=== PATIENT | female | born 1980 | race Caucasian/White ===

== ENCOUNTER 2016-09-14 16:13 | Emergency (ER) | payer MEDICAID, OTHER ==
[~2016-09-14] VITALS: Ht 160 cm; Wt 80.0 kg
[2016-09-14 16:20] VITALS: Ht 160 cm; Wt 80.0 kg
[2016-09-14] MEDS ORDERED: KETOROLAC 60 MG INJ IM STA (17:01)
[2016-09-14] MEDS ORDERED: ACETAMINOPHEN/CODEINE #3 TAB PO ONE (17:30)
--- NOTE | 2016-09-14 17:39 | RADRPT ---
PROCEDURE: XR Cervical Spine 3 Views. CLINICAL INDICATION: Neck pain TECHNIQUE: AP, lateral and odontoid views of the cervical spine were performed. The images were re viewed on a PACS workstation. COMPARISON: None. FINDINGS: Cervical spine demonstrates a normal lordosis. No fractures or destructive bony lesions are observe d. Intervertebral disk heights appear normal. Facet joints are unremarkable. No prevertebral soft tissue thickening is observed. IMPRESSION: Unremarkable cervical spine. If there is high clinical suspicion for traumatic injury, further evaluation with CT should be consi dered. If further characterization is needed CT or MRI could be helpful. RPTAT: AA .Jhon Roth MD, Date Time Electronically viewed and signed by .Jhon Roth MD, MD on 09/14/2016 17:39 .P/
[2016-09-14] MEDS ORDERED: ACET1TAB40 PO (18:00)
[2016-09-14] MEDS ORDERED: IBUP-1542 PO (18:00)
--- NOTE | 2016-09-14 18:09 | ERD ---
ER Documentation Chief Complaint Date/Time DATE: 09/14/16 TIME: 18:08 Chief Complaint LEFT EAR PAIN HPI This 36-year-old female presents with pain in her right side of her face. It started approximately week ago after turning her head suddenly. She has pain at the base of her neck or occipital area. She also has some pain in her right jaw with chewing and opening her mouth. She denies any fevers, vomiting, shortness breath or chest pain. ROS All systems reviewed and are negative except as per history of present illness. Medications Home Meds Active Scripts Acetaminophen with Codeine (Acetaminophen-Cod #3 Tablet) 1 Each Tablet, 1 TAB PO Q6H Y for PAIN, #15 TAB Prov:CHANNING CARDENAS MD 09/14/16 Ibuprofen* (Motrin*) 600 Mg Tab, 600 MG PO Q6, #20 TAB Prov:CHANNING CARDENAS MD 09/14/16 Allergies Allergies: Coded Allergies: No Known Allergy (Verified , 09/14/16) PMhx/Soc History of Surgery: No Anesthesia Reaction: No Hx Neurological Disorder: No Hx Respiratory Disorders: No Hx Cardiac Disorders: No Hx Psychiatric Problems: No Hx Miscellaneous Medical Probl: No Hx Alcohol Use: No Hx Substance Use: No Hx Tobacco Use: No Smoking Status: Never smoker Physical Exam Vitals Vital Signs Date Time Temp Pulse Resp B/P Pulse Ox O2 Delivery O2 Flow Rate FiO2 09/14/16 16:20 98.1 57 20 114/60 99 Physical Exam Const: [] Alert, not ill-appearing. Head: Atraumatic Eyes: Normal Conjunctiva ENT: Normal External Ears, Nose and Mouth. There is some tenderness in the right TMJ. There is no mastoid tenderness. TMs are normal oropharynx normal per Neck: Full range of motion..~ No meningismus. There is some tenderness at the base of the right cervical paraspinous muscles. C1-C2. Resp: Clear to auscultation bilaterally Cardio: Regular rate and rhythm, no murmurs Abd: Soft, non tender, non distended. Normal bowel sounds Skin: No petechiae or rashes Back: No midline or flank tenderness Ext: No cyanosis, or edema Neur: Awake and alert Psych: Normal Mood and Affect Results 24 hrs Current Medications Medications (Trade) Dose Ordered Sig/Kristi Route PRN Reason Start Time Stop Time Status Last Admin Dose Admin Ketorolac Tromethamine (Toradol) 60 mg ONCE STAT IM 09/14/16 17:01 09/14/16 17:03 DC 09/14/16 17:13 Acetaminophen/ Codeine Phosphate (Tylenol No.3) 1 tab ONCE ONCE PO 09/14/16 17:30 09/14/16 17:31 DC 09/14/16 17:12 Procedures/MDM X-ray C spine 3V Interpreted by me: Bones: [No fracture] Joints: [No dislocation] Foreign body: [None]. Impression have a normal C-spine x-ray Patient presents with signs of TMJ and neck pain after turning her head quickly. There is no signs of mastoiditis, abscess, neurologic deficit, fracture, dislocation. She will treated with ibuprofen and Tylenol No. 3 instructions for dental follow-up. She should return for fevers, difficulty swallowing, shortness breath, new worsening symptoms. The patient was stable with no new complaints during the ER course. Clinically, there is no current evidence to suggest meningitis, sepsis, acute abdomen, pneumonia, acute coronary syndrome, pulmonary embolism, or any other emergent condition appearing to require further evaluation or hospitalization. The patient should certainly return for any new or worsening symptoms per the aftercare instructions. They should otherwise follow-up with her primary care doctor for reevaluation this week. Departure Diagnosis: Primary Impression: Neck pain Additional Impression: TMJ arthralgia Laterality: right Qualified Code: M26.621 - Arthralgia of right temporomandibular joint Condition: Stable Patient Instructions: Neck Pain, No Trauma, Tmj Syndrome Referrals: [facility] ([facility]) Additional Instructions: x ray normal. likely pinched nerve or muscle. recommend dental evaluation for jaw pain. recommend jaw rest and no gum or chewing CHANNING CARDENAS MD September 14, 2016 18:09
== END 2016-09-14 18:10 | disposition home or self-care (01) ==
LOC: FTE 16:13
DX: M54.2 Cervicalgia (principal); M26.621 Arthralgia of right temporomandibular joint
CPT/HCPCS: 72040; 96372; J1885; Z7502; Z7610

== ENCOUNTER 2017-10-13 16:00 | Emergency (ER) | END 2017-10-13 18:31 | disposition home or self-care (01) ==